=== PATIENT | male | born 1985 | race American Indian/Alaskan Native ===

== ENCOUNTER 2018-09-11 15:49 | Emergency (ER) | payer SELFPAY ==
--- NOTE | 2018-09-11 16:06 | Emergency Department Report ---
Blank Doc - Documentation Documentation: This is a 32-year-old male that presents with rectal pain. Patient denies any rectal bleeding or abdominal pain. Denies any other symptoms or complaints. This initial assessment diagnostic orders/clinical plan/treatment(s) is/are subject to change based on patient's health status, clinical progression and re- assessment by fellow clinical providers in the ED. Further treatment and workup at subsequent clinical providers discretion. Patient/guardians urged not to elope from ED s their condition may be serious if not clinically assessed and managed. Initial orders include: 1-Patient sent to [facility] for further evaluation and treatment
[2018-09-11 19:37] VITALS: BP 133/82
[2018-09-11] MEDS ORDERED: IBUPROFEN ONE (19:47)
[2018-09-11] MEDS ORDERED: IBUPROFEN PO ONE (19:48)
--- NOTE | 2018-09-11 19:59 | Emergency Department Report ---
ED Male HPI - General Chief complaint: Rectal Pain Stated complaint: BUTT PAIN Time Seen by Provider: 09/11/18 16:05 Source: patient Mode of arrival: Ambulatory Limitations: No Limitations - History of Present Illness Initial comments: 32-year-old -[place] male with no past medical history comes in complaining of rectal pain 2 days. Patient denies any rectal bleeding. Patient states that he's had been normal bowel movements but when he evacuate he has rectal pain. Patient tried some [id number] hemorrhoid cream which she reported had helped some. Patient denies any fever chills no abdominal pain. -: days(s) (2) Radiation: none Severity: severe Consistency: intermittent Improves with: none Worsens with: bowel movement denies: blood in urine, fever, nausea/vomiting - Related Data Previous Rx's Medication Instructions Recorded Last Taken Type Ciprofloxacin HCl [Cipro] 500 mg PO BID 10 Days #20 tablet 07/19/18 Unknown Rx Ondansetron [Zofran Odt] 4 mg PO Q8HR PRN #20 tab.rapdis 07/19/18 Unknown Rx metroNIDAZOLE [Flagyl] 500 mg PO Q8HR 10 Days #30 tab 07/19/18 Unknown Rx Hydrocortisone [Anusol-Hc] 30 gm RC Q8H PRN #1 box 09/11/18 Unknown Rx Ibuprofen [Motrin 800 MG tab] 800 mg PO Q8HR PRN #30 tablet 09/11/18 Unknown Rx Allergies Allergy/AdvReac Type Severity Reaction Status Date / Time No Known Allergies Allergy Verified 07/19/18 05:17 ED Review of Systems ROS: Stated complaint: BUTT PAIN Other details as noted in HPI Comment: All other systems reviewed and negative Constitutional: denies: chills, fever Eyes: denies: eye pain, eye discharge, vision change ENT: denies: ear pain, throat pain ED Past Medical Hx - Past Medical History Additional medical history: Bronchitis - Social History Smoking Status: Never Smoker Substance Use Type: None - Medications Home Medications: Home Medications Medication Instructions Recorded Confirmed Last Taken Type Ciprofloxacin HCl [Cipro] 500 mg PO BID 10 Days #20 tablet 07/19/18 Unknown Rx Ondansetron [Zofran Odt] 4 mg PO Q8HR PRN #20 tab.rapdis 07/19/18 Unknown Rx metroNIDAZOLE [Flagyl] 500 mg PO Q8HR 10 Days #30 tab 07/19/18 Unknown Rx Hydrocortisone [Anusol-Hc] 30 gm RC Q8H PRN #1 box 09/11/18 Unknown Rx Ibuprofen [Motrin 800 MG tab] 800 mg PO Q8HR PRN #30 tablet 09/11/18 Unknown Rx ED Physical Exam - General Limitations: No Limitations General appearance: alert, in no apparent distress - Head Head exam: Present: atraumatic, normocephalic - Eye Eye exam: Present: EOMI - ENT ENT exam: Present: mucous membranes moist - Cardiovascular Cardiovascular Exam: Present: regular rate, normal rhythm. Absent: systolic murmur, diastolic murmur, rubs, gallop - Rectal Rectal exam: Present: hemorrhoids (non-strangulated), tenderness, other (soft stool) - Neurological Exam Neurological exam: Present: alert, oriented X3, normal gait - Psychiatric Psychiatric exam: Present: normal affect, normal mood - Skin Skin exam: Present: warm, dry, intact, normal color. Absent: rash ED Course Vital Signs 09/11/18 09/11/18 09/11/18 15:50 16:09 19:27 Temperature 98.5 F 98.5 F 98.7 F Pulse Rate 97 H 97 H 89 Respiratory 18 16 16 Rate Blood Pressure 133/82 118/76 Blood Pressure 133/82 [Right] O2 Sat by Pulse 98 97 Oximetry 09/11/18 19:48 Temperature Pulse Rate Respiratory 16 Rate Blood Pressure Blood Pressure [Right] O2 Sat by Pulse Oximetry ED Medical Decision Making - Medical Decision Making Patient has been evaluated by this provider fast track. Ibuprofen given for pain management. Appreciated external hemorrhoid is non-strangulated nonthrombosed tender We'll place patient on Anusol HC and a referral to a [facility] colorectal specialist. Critical care attestation.: If time is entered above; I have spent that time in minutes in the direct care of this critically ill patient, excluding procedure time. ED Disposition Clinical Impression: Hemorrhoid Qualifiers: Hemorrhoid type: unspecified Qualified Code(s): K64.9 - Unspecified hemorrhoids Disposition: - TO HOME OR SELFCARE Is pt being admited?: No Does the pt Need Aspirin: No Condition: Stable Instructions: Hemorrhoids (ED) Additional Instructions: Please take pain medication as needed. Please use rectal suppositories as prescribed and follow up with colorectal specialist I have listed their information below. Prescriptions: Hydrocortisone [Anusol-Hc] 30 gm RC Q8H PRN #1 box PRN Reason: Hemorrhoids Ibuprofen [Motrin 800 MG tab] 800 mg PO Q8HR PRN #30 tablet PRN Reason: Pain , Severe (7-10) Referrals: [facility] [place] MD PRETT[facility] [Primary Care Provider] - 3-5 Days [facility] [Provider Group] - 3-5 Days Forms: Accompanied Note, Work/School Release Form(ED)
== END 2018-09-11 20:20 | disposition home or self-care (01) ==
LOC: ED 15:49
DX: K64.9 Unspecified hemorrhoids (principal)
CPT/HCPCS: 99282

== ENCOUNTER 2021-01-10 00:15 | Emergency (ER) | payer SELFPAY | END 2021-01-10 00:19 | disposition left against medical advice (07) | LOC: ED 00:15 | DX: R10.9 Unspecified abdominal pain (principal); Z53.21 Procedure and treatment not carried out due to patient leaving prior to being seen by health care provider ==